=== PATIENT | male | born 1985 ===

== ENCOUNTER 2017-12-11 13:32 | Emergency (ER) | payer BC, MEDICAID ==
[2017-12-11 13:39] VITALS: BMI 28.2
--- NOTE | 2017-12-11 14:23 | ED PDOC ---
HPI: SOB/CHF/COPD Time Seen by Provider: 12/11/17 13:49 Chief Complaint (Nursing): Shortness Of Breath Chief Complaint (Provider): Shortness of Breath History Per: Patient History/Exam Limitations: no limitations Onset/Duration Of Symptoms: Hrs (since 08:00), Intermittent Episodes (SOB) Current Symptoms Are (Timing): Still Present Exacerbating Factor(s): Coughing Associated Symptoms: Chest Pain, Dizziness. denies: Fever, Leg/Calf Pain, Ankle /Leg Swelling Additional Complaint(s): 32 year old male presents to the ED complaining of dizziness with SOB and left sided chest pain with tingling to both fingers since 08:00 this morning. Patient SOB comes and goes and reports pain is worse with cough. He has had these symptoms before which was attributed to anxiety when he has an argument with is . Symptoms began when he was at work. Patient has not had a stress test before. Patient states on Saturday [place] to the beach [place] away but admits he went to a rest stop and walked around during it. Denies fever, leg pain, leg swelling, or recent hospitalization. PMD: [facility] - Risk Factors PE Risk Factors: Neg: Previous DVT Past Medical History Reviewed: Historical Data, Nursing Documentation, Vital Signs Vital Signs: Last Vital Signs Temp 98.2 F 12/11/17 13:40 Pulse 92 H 12/11/17 15:31 Resp 16 12/11/17 13:40 BP 149/72 12/11/17 13:40 Pulse Ox 99 12/11/17 15:31 - Medical History PMH: Diverticulitis Denies: Deep Vein Thrombosis, Chronic Kidney Disease - Surgical History Surgical History: No Surg Hx - Family History Family History: States: CAD, Diabetes - Home Medications Home Medications: Ambulatory Orders Medication Instructions Recorded Ciprofloxacin/Ciprofloxa HCl 500 mg PO BID #14 tab 05/20/15 [Ciprofloxacin] Ibuprofen [Motrin] 600 mg PO Q6 PRN #20 tab 05/20/15 Metronidazole [Flagyl] 500 mg PO TID #21 tab 05/20/15 Oxycodone HCl/Acetaminophen 1 tab PO Q4 PRN #12 tab 05/20/15 [Percocet 325 mg-5 mg] - Allergies Allergies/Adverse Reactions: Allergies Allergy/AdvReac Type Severity Reaction Status Date / Time No Known Allergies Allergy Verified 05/20/15 09:57 Review of Systems ROS Statement: Except As Marked, All Systems Reviewed And Found Negative Constitutional: Negative for: Fever Cardiovascular: Positive for: Chest Pain Respiratory: Positive for: Cough, Shortness of Breath Musculoskeletal: Negative for: Leg Pain (and leg swelling) Neurological: Positive for: Dizziness, Other (Tingling) Physical Exam - Reviewed Nursing Documentation Reviewed: Yes Vital Signs Reviewed: Yes - Physical Exam Comments: GENERAL APPEARANCE: Patient is awake, alert, oriented x 3, in mild distress, anxious. SKIN: Warm, dry; (-) cyanosis. EYES: (-) conjunctival pallor. ENMT: Mucous membranes moist. NECK: (-) tenderness, (-) stiffness, (-) lymphadenopathy, (-) JVD. CHEST AND RESPIRATORY: (-) rash, (-) chest wall tenderness. Lungs: (-) rales , (-) rhonchi, (-) wheezes, (-) rub; breath sounds equal bilaterally. HEART AND CARDIOVASCULAR: (-) irregularity; (-) murmur, (-) gallop, (-) rub. ABDOMEN AND GI: Soft; (-) distention, (-) tenderness, (-) palpable pulsatile mass. EXTREMITIES: (-) deformity; (-) edema, (-) calf tenderness. (+) distal pulses. NEURO AND PSYCH: Mental status as above. Cranial nerves grossly intact; strength symmetric. - Laboratory Results Result Diagrams: 12/11/17 14:38 12/11/17 14:38 - ECG ECG Rhythm: Positive for: Sinus Rhythm (normal) Rate: 92 O2 Sat by Pulse Oximetry: 99 (RA) Medical Decision Making Medical Decision Making: Initial Impression: Dizziness associated with SOB and CP Initial Plan: ECG Alcohol CMP Troponin CBC D Dimer Partial thromboplatin Prothrombin time Chest X-ray EKG : NSR at 92 bpm, no acute ST changes, as read by PA CXR : NAD, as read by PA Lab results reviewed : trop (-), d-dimer (-). On re-evaluation, patient reports improvement of symptoms, denies any SOB, CP or dizziness at this time. On exam, patient remains AAOx3, in no acute distress. VS P 86 O2sat 95%RA. Repeat neuro exam shows no focal findings. Diagnostic results d/w the patient in great detail. Diagnosis of anxiety attack d/w the patient. Based on history, exam and diagnostic results, plan will be for outpatient follow up. Patient instructed to follow-up with pmd in 1-2 days without fail. Return to the emergency room at any time for any new or worsening symptoms. Patient states he fully agrees with and understands discharge instructions. States that he agrees with the plan and disposition. Verbalized and repeated discharge instructions and plan. I have given the patient opportunity to ask any additional questions. Scribe Attestation: Documented by Juaquin Holt acting as a scribe for Loni PALENCIA. Provider Scribe Attestation: All medical record entries made by the Scribe were at my direction and personally dictated by me. I have reviewed the chart and agree that the record accurately reflects my personal performance of the history, physical exam, medical decision making, and the department course for this patient. I have also personally directed, reviewed, and agree with the discharge instructions and disposition. Disposition - Clinical Impression Clinical Impression: Anxiety attack - Patient ED Disposition Is Patient to be Admitted: No Counseled Patient/Family Regarding: Studies Performed, Diagnosis, Need For Followup - Disposition Disposition: Routine/Home Disposition Time: 15:30 Condition: STABLE Additional Instructions: Thank you for letting us take care of you today. You were treated for anxiety attack. The emergency medical care you received today was directed at your acute symptoms. Return to the Emergency Department if your symptoms worsen, do not improve, or if you have any other problems. Please contact your doctor in 2 days for re-evaluation and follow up. Bring any paperwork you were given at discharge with you along with any medications you are taking to your follow up visit. Our treatment cannot replace ongoing medical care by a primary care provider (PCP) outside of the emergency department. Thank you for allowing the [facility] team to be part of your care today. Instructions: Anxiety, Adult (DC) Forms: [facility] (Kinyarwanda) - PA / RADIOLOGY PHYSICIAN ASSISTANT / Resident Statement MD/DO has reviewed & agrees with the documentation as recorded.
[2017-12-11 14:43] LABS: BASO # 0.1 K/uL (0.0-0.2); BASO % 0.5 % (0.0-2.0); EOS % 0.1 % (0.0-4.0); HEMOGLOBIN 16.2 g/dL (12.0-18.0); LYMPH # 2.4 K/uL (1.0-4.3); LYMPH % 18.7 % (20.0-40.0); MEAN CELL VOLUME 86.6 fl (80.0-94.0); MEAN CORPUSCULAR HEMOGLOBIN 30.4 pg (27.0-31.0); MEAN CORPUSCULAR HGB CONC 35.1 g/dL (33.0-37.0); MEAN PLATELET VOLUME 8.3 fl (7.2-11.7); MONO # 0.6 K/uL (0.0-0.8); NEUT # 9.7 K/uL (1.8-7.0); NEUT % 75.7 % (50.0-75.0); NRBC % 0.1 % (0.0-0.0); RBC 5.34 Mil/uL (4.40-5.90); RED CELL DISTRIBUTION WIDTH 13.5 % (11.5-14.5); WHITE BLOOD COUNT 12.9 K/uL (4.8-10.8)
[2017-12-11 14:56] LABS: ALB/GLOB RATIO 1.6 (1.0-2.1); ALBUMIN 5.2 g/dL (3.5-5.0); ALT/SGPT 23 U/L (21-72); AST/SGOT 34 U/L (17-59); BLOOD UREA NITROGEN 14 mg/dl (9-20); CALCIUM 10.1 mg/dL (8.4-10.2); GFR AFRICAN-AMERICAN > 60; GFR NON-AFRICAN AMERICAN > 60
[2017-12-11 15:02] LABS: PARTIAL THROMBOPLASTIN TIME 28.8 Seconds (25.6-37.1); PROTHROMBIN TIME 10.8 Seconds (9.8-13.1)
--- NOTE | 2017-12-11 15:23 | RAD ---
Date of service: 12/11/2017 HISTORY: SOB COMPARISON: No prior. TECHNIQUE: Chest PA and lateral FINDINGS: LUNGS: No active pulmonary disease. PLEURA: No significant pleural effusion identified. No pneumothorax apparent. CARDIOVASCULAR: Normal. OSSEOUS STRUCTURES: No significant abnormalities. VISUALIZED UPPER ABDOMEN: Normal. OTHER FINDINGS: None. IMPRESSION: No active disease.
[2017-12-11 16:11] VITALS: RESP 18
[2017-12-11 16:17] VITALS: BP 140/62; PULSE 95; TEMP 98.4; O2SAT 98
--- NOTE | 2017-12-12 16:35 | CARD ---
APPROVED REPORT Date of service: 12/11/2017 EKG Measurement Heart [id number] [id number] [id number] <Conclusion> Normal sinus rhythm Normal ECG
== END 2017-12-11 16:00 | disposition home or self-care (01) ==
LOC: H.ER 13:32
DX: F41.0 Panic disorder [episodic paroxysmal anxiety] (principal); J44.9 Chronic obstructive pulmonary disease, unspecified; Z82.49 Family history of ischemic heart disease and other diseases of the circulatory system
CPT/HCPCS: 71046; 80053; 84484; 85025; 85378; 85610; 85730; 93005; 99285; G0480